=== PATIENT | male | born 2000 | race Hispanic/Latino ===

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

== ENCOUNTER 2023-12-30 16:34 | Emergency (ER) | payer MEDICAID, OTHER ==
[~2023-12-30] VITALS: Ht 165.1 cm; Wt 56.7 kg
[2023-12-30 17:11] LABS: BASOPHILS # (AUTO) 0.08 K/uL (0.00-0.20); BASOPHILS % (AUTO) 1.1 % (0.0-5.0); EOSINOPHILS # (AUTO) 0.08 K/uL (0.00-0.70); EOSINOPHILS % (AUTO) 1.1 % (0.0-8.0); HEMATOCRIT 48.2 % (42-54); IMMATURE GRANULOCYTE ABSOLUTE 0.02 K/uL (0-1); LYMPHOCYTES # (AUTO) 1.8 K/uL (1.0-4.8); LYMPHOCYTES % (AUTO) 24.4 % (21.0-51.0); MEAN CORPUSCULAR HGB CONC 34.2 g/dL (32.0-36.0); MEAN CORPUSCULAR VOLUME 87.6 fL (79-99); MONOCYTES # (AUTO) 0.4 K/uL (0.1-1.0); MONOCYTES % (AUTO) 5.6 % (3.0-13.0); NEUTROPHILS % (AUTO) 67.5 % (40.0-77.0); PLATELET COUNT (AUTO) 253 K/uL (130-400); RED CELL DISTRIBUTION WIDTH 12.7 % (11.0-15.5); WHITE BLOOD COUNT (AUTO) 7.4 K/uL (4.8-10.8)
[2023-12-30 17:20] LABS: CREATININE 0.9 mg/dL (0.5-1.3); POTASSIUM 3.5 mmol/L (3.5-5.1)
[2023-12-30 17:24] LABS: ALBUMIN 4.8 g/dL (3.5-5.0); BILIRUBIN,DIRECT 0.1 mg/dL (0.0-0.3); BILIRUBIN,TOTAL 0.5 mg/dL (0.2-1.0); TOTAL PROTEIN, SERUM 8.2 g/dL (6.0-8.3)
--- NOTE | 2023-12-30 19:18 | ERN ---
General Chief Complaint: Abdominal Pain Stated Complaint: ABD PAIN X 2 WEEKS Time Seen by MD: 16:44 Time Seen by Midlevel: 16:44 Source: patient History of Present Illness Initial Comments Patient is a 23-year-old male with no significant past medical history presenting to the emergency department with midepigastric abdominal pain that has been persistent for several weeks now. He has seen his primary care doctor multiple times for this issue. He was referred to a television servicer but does not have his appointment scheduled until February of next year. He also has a CT scan scheduled for next month but states his pain has progressively worsened so he decided to report to the ER for further evaluation. He was recently started on Zofran and sucralfate with no relief. Patient states the sucralfate actually worsened his abdominal pain. Today he denies any vomiting, dysuria, hematuria, fever, diarrhea, or any other symptoms at this time. Allergies: Coded Allergies: morphine (Unverified Allergy, Intermediate, 12/30/23) Home Meds Active Scripts Omeprazole (Omeprazole) 20 Mg Tablet.dr, 1 TAB PO DAILY for 30 Days, #30 TAB 0 Refills Prov:LUI FRENCH 12/30/23 Famotidine (Pepcid) 20 Mg Tablet, 1 TAB PO DAILY for 5 Days, #5 TAB 0 Refills Prov:LUI FRENCH 12/30/23 Past Medical History Past Medical History: No Pertinent History Past Surgical History: None ROS Dictation CONSTITUTIONAL: Negative except for HPI HEAD/FACE: Negative except for HPI EENT: Negative except for HPI RESPIRATORY: Negative except for HPI GASTROINTESTINAL/ABDOMINAL: Negative except for HPI GENITOURINARY: Negative except for HPI MUSCULOSKELETAL: Negative except for HPI INTEGUMENTARY: Negative except for HPI NEUROLOGICAL/PSYCH: Negative except for HPI HEMATOLOGIC/LYMPHATIC: Negative except for HPI All Systems Negative, Except as noted above. 13 point review of systems assessed and all negative except for above. Physical Exam Physical Exam Dictation Vital Signs reviewed General Appearance: Alert, oriented x 3, no acute distress, pale Head and Face: non-traumatic. Eyes: PERRL, pink conjunctivas, eyelid no trauma, anterior chamber with arcus senilis. Ears: Pinnas intact and no signs of trauma or erythema ear canals clear and no discharge TM no erythema Nose: No discharge, no bleeding. Oropharynx: Mouth normal, tongue pink, pharynx clear,no erythema, tonsils no exudates, no abscesses noted, mucous membrane moist Neck: Supple, non-tender, no thyromegaly, no masses, no JVD, no bruits Breast:Deferred Chest:No tenderness, no crepitus, no paradoxical movement, no retractions Lungs:Clear, well-ventilated, symmetric, no rales, no wheezing, no rhonchi, no stridor, good breath sounds bilaterally Heart: Regular rate, regular rhythm, no murmur, no gallops Vascular: no peripheral edema, Abdomen: Soft, positive bowel sounds, nondistended, no guarding, Midepigastric abdominal tenderness, no rebound, no masses no hepatomegaly, no splenomegaly, no Galeana's sign, no hernias. Rectal: Deferred Genital: Deferred Neurological: Normal speech, motor function intact, sensory function intact Musculoskeletal: Neck nontender, full range of motion, back nontender, full range of motion, Extremities: nontender, full range of motion Skin: Color pink, dry, no turgor, no rash, no lacerations, no abrasions, no contusions. Lymphatic: Deferred Results Laboratory and Microbiology Lab and Micro Result Laboratory Tests Test 12/30/23 17:05 12/30/23 19:18 White Blood Count 7.4 K/uL (4.8-10.8) Red Blood Count 5.50 MIL/uL (4.50-6.20) Hemoglobin 16.5 g/dL (14.0-18.0) Hematocrit 48.2 % (42-54) Mean Corpuscular Volume 87.6 fL (79-99) Mean Corpuscular Hemoglobin 30.0 pg (27.0-33.0) Mean Corpuscular Hemoglobin Concent 34.2 g/dL (32.0-36.0) Red Cell Distribution Width 12.7 % (11.0-15.5) Platelet Count 253 K/uL (130-400) Mean Platelet Volume 10.3 fL (7.5-10.5) Immature Granulocyte % (Auto) 0.3 % (0-1) Neutrophils (%) (Auto) 67.5 % (40.0-77.0) Lymphocytes (%) (Auto) 24.4 % (21.0-51.0) Monocytes (%) (Auto) 5.6 % (3.0-13.0) Eosinophils (%) (Auto) 1.1 % (0.0-8.0) Basophils (%) (Auto) 1.1 % (0.0-5.0) Neutrophils # (Auto) 5.0 K/uL (1.8-7.7) Lymphocytes # (Auto) 1.8 K/uL (1.0-4.8) Monocytes # (Auto) 0.4 K/uL (0.1-1.0) Eosinophils # (Auto) 0.08 K/uL (0.00-0.70) Basophils # (Auto) 0.08 K/uL (0.00-0.20) Absolute Immature Granulocyte (auto 0.02 K/uL (0-1) Nucleated Red Blood Cells 0.0 % (0.0-0.19) Sodium Level 142 mmol/L (136-145) Potassium Level 3.5 mmol/L (3.5-5.1) Chloride Level 104 mmol/L (101-111) Carbon Dioxide Level 28 mmol/L (21-32) Blood Urea Nitrogen 10 mg/dL (7-18) Creatinine 0.9 mg/dL (0.5-1.3) Glomerular Filtration Rate Calc 122 mL/min (>90) Random Glucose 114 mg/dL (70-105) H Total Calcium 9.3 mg/dL (8.5-10.1) Total Bilirubin 0.5 mg/dL (0.2-1.0) Direct Bilirubin 0.1 mg/dL (0.0-0.3) Aspartate Amino Transf (AST/SGOT) 12 U/L (10-37) Alanine Aminotransferase (ALT/SGPT) 17 U/L (12-78) Alkaline Phosphatase 66 U/L (50-136) Total Protein 8.2 g/dL (6.0-8.3) Albumin 4.8 g/dL (3.5-5.0) Lipase 37 U/L (16-77) Urine Color COLORLESS (YELLOW) Urine Appearance CLEAR (CLEAR) Urine pH 6.5 (5.0-8.0) Urine Specific [place] 1.007 (1.001-1.031) Urine Protein NEGATIVE mg/dL (NEGATIVE) Urine Glucose (UA) NEGATIVE mg/dL (NEGATIVE) Urine Ketones 40 mg/dL (NEGATIVE) H Urine Occult Blood NEGATIVE (NEGATIVE) Urine Nitrate NEGATIVE (NEGATIVE) Urine Bilirubin NEGATIVE mg/dL (NEGATIVE) Urine Urobilinogen 0.2 mg/dL (0.2-1.0) Urine Leukocyte Esterase NEGATIVE Joe/uL Urine RBC None /HPF (0-1) Urine WBC 0-1 /HPF (0-1) Urine Bacteria None /HPF (None Seen) Labs Reviewed?: Yes MDM MDM: Patient is a 23-year-old male with no significant past medical history presenting to the emergency department with midepigastric abdominal pain that has been persistent for several weeks now. He has seen his primary care doctor multiple times for this issue. He was referred to a television servicer but does not have his appointment scheduled until February of next year. He also has a CT scan scheduled for next month but states his pain has progressively worsened so he decided to report to the ER for further evaluation. He was recently started on Zofran and sucralfate with no relief. Patient states the sucralfate actually worsened his abdominal pain. Today he denies any vomiting, dysuria, hematuria, fever, diarrhea, or any other symptoms at this time. On physical examination patient is in no acute distress. His vital signs are stable. Patient is afebrile. Patient appears pale and has midepigastric abdominal tenderness with no rebound or guarding. The remainder of his physical examination is reassuring. His CBC and chemistries are stable however when I evaluated him after 1 hour of being in the emergency department patient appears to be in a significant amount of pain. A CT scan of the abdomen and pelvis without contrast was ordered which reveals no acute intra-abdominal pathology. Patient was given Maalox with lidocaine along with Pepcid and he does report feeling improved. His symptoms most likely consistent with gastritis. Patient was advised to keep his appointment with television servicer and return to the ER for any new or worsening symptoms. Patient was agreeable with this plan and all questions have been answered. We will trial Pepcid and omeprazole outpatient. Differential diagnosis: Acute pancreatitis, acute cholecystitis, gastritis, gastroenteritis There are no social concerns with this patient. Prescription drug management Prescriptions will include: Pepcid and omeprazole Medical management and examination interpretation discussions were had by me with other qualified healthcare professionals as indicated for the patient's care. ED Course Orders Procedure Category Date Status Time Cbc With Differential LAB 12/30/23 Complete 16:54 Basic Metabolic Panel LAB 12/30/23 Complete 16:54 Lipase LAB 12/30/23 Complete 16:54 Hepatic Function Panel LAB 12/30/23 Complete 16:54 Ct Abdomen/Pelvis W/O CT 12/30/23 Resulted Contrast 18:44 Urinalysis Profile LAB 12/30/23 Complete 19:19 Lidocaine Hcl 2% PHA 12/30/23 Complete Viscous (Lidocaine Hcl 19:30 Mag/Alum/Simeth 30ml PHA 12/30/23 Complete (Maalox Plus 30ml) 19:30 Famotidine 20mg Tab PHA 12/30/23 Complete (Pepcid 20mg Tab) 19:30 Current Medications Medications (Trade) Dose Ordered Sig/Aminata Route PRN Reason Start Time Stop Time Status Last Admin Dose Admin Al Hydroxide/Mg Hydroxide (MAALox PLUS 30ML) 30 ml ONCE ONCE PO 12/30/23 19:30 12/30/23 19:31 DC 12/30/23 19:31 Famotidine (Pepcid 20mg Tab) 20 mg ONCE ONCE PO 12/30/23 19:30 12/30/23 19:31 DC 12/30/23 19:31 Lidocaine HCl (Lidocaine HCl 2% Viscous) 10 ml ONCE ONCE PO 12/30/23 19:30 12/30/23 19:31 DC 12/30/23 19:31 Vital Signs Date Time Temp Pulse Resp B/P (MAP) Pulse Ox O2 Delivery O2 Flow Rate FiO2 12/30/23 19:37 98.4 80 18 142/78 98 Room Air* 0 21 12/30/23 16:53 98.1 82 20 134/75 99 Room Air 0 [place] [id number] IMAGING REPORT Signed PATIENT: HERMINIO LABOY JR MR#: [id number] : 2000 SEX: M AGE: 23 LOCATION: ED ORDER 44 STATUS: REG ER REPORT#: [id number] SERVICE 43 REASON: persistent mid epigastric abd pain with associated weight loss ORDERING PHYSICIAN: LUI FRENCH PROCEDURE: ABD PEL WO - CT ABDOMEN/PELVIS W/O CONTRAST CT ABDOMEN/PELVIS W/O CONTRAST REASON: persistent mid epigastric abd pain with associated weight loss COMPARISON: None. FINDINGS: Lung bases are clear. There are no focal liver lesions. There are normal-appearing kidneys.. Spleen and pancreas appear unremarkable. The gallbladder appears normal as well. Bowel loops appear unremarkable. This includes normal appearance of the appendix There is no evidence of free fluid or intraperitoneal air. There are no focal fluid collections. Aorta and retroperitoneum appear normal as do pelvic soft tissue structures. The anterior abdominal wall is intact. Osseous structures appear unremarkable. IMPRESSION: 1. Negative noncontrast CT abdomen and pelvis. CT was performed with one or more following dose reduction techniques: automated exposure control, adjustment of the mA and kv according to patient's size, or use of a iterative reconstruction technique. DICTATED BY: JOSE FARIA MD DATE: 12/30/231911 ELECTRONICALLY SIGNED BY: JOSE FARIA MD DATE: 12/30/231917 DX & DISP Disposition: Discharge Departure Impression: Primary Impression: Gastritis Additional Impression: Midepigastric pain Condition: Stable Scripts Omeprazole (Omeprazole) 20 Mg Tablet.dr 1 TAB PO DAILY for 30 Days, #30 TAB 0 Refills Prov: LUI FRENCH 12/30/23 Famotidine (Pepcid) 20 Mg Tablet 1 TAB PO DAILY for 5 Days, #5 TAB 0 Refills Prov: LUI FRENCH 12/30/23 Additional Instructions: Your blood work today is unremarkable. Your CT scan is negative for any acute intra-abdominal pathology. You were given a GI cocktail and Pepcid in the emergency department. Please keep appointment with television servicer. Your symptoms are most likely being caused by a peptic ulcer. I have given you a prescription for Pepcid and omeprazole. Follow up with your primary care doctor in 2-3 days for repeat evaluation. Return to the emergency department for any new or worsening symptoms. Referrals: SHIRA POPE (PCP) Time of Disposition: 19:27 I have reviewed the case, and I agree with, Diagnosis and Plan I performed the substantive portion of the visit. I have reviewed and personally made and approve the management plan that is documented in the note by myself or the AMALIA. I acknowledge for responsibility for the patient's management plan. LUI FRENCH Dec 30, 2023 19:18 CONSUELO DOS SANTOS DO Dec 31, 2023 07:23
[2023-12-30 19:25] LABS: ADD UA MICROSCOPIC YES; APPEARANCE,URINE CLEAR (CLEAR); BILIRUBIN,URINE NEGATIVE (NEGATIVE); COLOR,URINE COLORLESS (YELLOW); GLUCOSE, URINE (UA) NEGATIVE (NEGATIVE); KETONES,URINE 40 mg/dL (NEGATIVE); LEUKOCYTE ESTERASE ,URINE NEGATIVE Leu/uL (NEGATIVE); NITRATE,URINE NEGATIVE (NEGATIVE); OCCULT BLOOD,URINE NEGATIVE (NEGATIVE); PH,URINE 6.5 (5.0-8.0); PROTEIN,URINE NEGATIVE (NEGATIVE); UROBILINOGEN,URINE 0.2 mg/dL (0.2-1.0)
[2023-12-30 19:26] LABS: WBC,URINE 0-1 /HPF (0-1)
[2023-12-30] MEDS: MAG/ALUM/SIMETH 30 ML UDCUP PO ONE (19:31)
[2023-12-30] MEDS: LIDOCAINE HCL 2% VISCOUS 15 ML UDCUP PO ONE (19:31)
[2023-12-30] MEDS: FAMOTIDINE 20MG TAB PO ONE (19:31)
[2023-12-30 19:37] VITALS: BP 142/78; PULSE 80; RESP 18; TEMP 98.4; O2SAT 98
[2023-12-30] MEDS ORDERED: FAMO-136 PO (19:41)
[2023-12-30] MEDS ORDERED: OMEP20TA20 PO (19:41)
== END 2023-12-30 20:02 | disposition home or self-care (01) ==
LOC: EDH 16:34
DX: K29.70 Gastritis, unspecified, without bleeding (principal); R10.13 Epigastric pain; Z79.899 Other long term (current) drug therapy; Z88.5 Allergy status to narcotic agent
CPT/HCPCS: 36415; 74176; 80048; 80076; 81001; 83690; 85025; 99284